=== PATIENT | female | born 1970 | race African-American/Black ===

== ENCOUNTER 2025-08-11 23:46 | Emergency (ER) | payer OTHER ==
[~2025-08-11] VITALS: Ht 165.1 cm; Wt 83.0 kg
[2025-08-12] VITALS: O2SAT 100
[2025-08-12] MEDS: IBUPROFEN 600MG TABLET PO ONE (02:09)
[2025-08-12] MEDS ORDERED: IBUP-1455 MT (03:24)
[2025-08-12 03:49] VITALS: BP 116/73; PULSE 65; RESP 14; TEMP 36.4; O2SAT 99
== END 2025-08-12 03:49 | disposition home or self-care (01) ==
LOC: ER 23:46
DX: T14.8XXA Other injury of unspecified body region, initial encounter (principal); Z98.890 Other specified postprocedural states; X58.XXXA Exposure to other specified factors, initial encounter; Y93.89 Activity, other specified; Y92.89 Other specified places as the place of occurrence of the external cause; Y99.8 Other external cause status
CPT/HCPCS: 73562; 81025; 93971; 99284